=== PATIENT | male | born 2000 | race Caucasian/White ===

== ENCOUNTER 2024-07-08 19:40 | Emergency (ER) | payer BC, SELFPAY ==
[2024-07-08 19:43] VITALS: BP 118/75
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
[2024-07-08] MEDS: ADACEL 0.5 ML IM (20:56)
== END 2024-07-08 21:11 | disposition home or self-care (01) ==
LOC: EMR 19:40
PROVIDERS: EMERGENCY PHYSICIAN Emergency Medicine
DX: S61.412A Laceration without foreign body of left hand, initial encounter (principal); X58.XXXA Exposure to other specified factors, initial encounter; Z23 Encounter for immunization
CPT/HCPCS: 99282; 12001; 90471; 90715